=== PATIENT | female | born 1990 | race Caucasian/White ===

== ENCOUNTER 2016-08-18 07:37 | Emergency (ER) | payer OTHER ==
[2016-08-18] MEDS ORDERED: RABIES VACCINE HUMAN 2.5 INTERNATIONAL UNITS/ML VIAL (90675) As Ordered ONE (07:48)
--- NOTE | 2016-08-18 08:00 | EDDOCDS ---
Physician Documentation [facility] Name: Shaneka Ibarra Age: 25 yrs Sex: Female : 1990 Arrival Date: 08/18/2016 Time: 07:37 Bed I2 / M2 Private MD: Disposition: 08/18/16 07:53 Discharged to Home/Self Care. Impression: Contact with and (suspected) exposure to rabies. - Condition is Stable. - Discharge Instructions: VIS, Rabies - [facility]. - Medication Reconciliation, Local Pharmacy Hours form. - Follow up: Alisha Solomon [facility]; When: 4 - 5 days; Reason: Further diagnostic work-up, Recheck today's complaints, Continuance of care, RABIES VACCINE DAY 7. - Problem is an ongoing problem. - Symptoms are unchanged. Historical: - Allergies: Ceclor; - Home Meds: 1. BCP 1 tab once daily - PMHx: none; - PSHx: none; - Social history: Smoking status: Patient states was never smoker of tobacco. No barriers to communication noted, The patient speaks fluent Danish, Speaks appropriately for age. - Family history: Not pertinent. - : The pt / caregiver states he / she is not on anticoagulants. Home medication list is obtained from the patient. - Exposure Risk Screening:: None identified. 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 5 in. (165.10 cm) (R); Pain 0/10; 07:43 Body Mass Index 21.63 (58.97 kg, 165.10 cm) mlb1 MDM: 07:44 Rabies Vaccine, Human Diploid (PF) 2.5 units IM once ordered. btw Administered Medications: 07:50 Drug: Rabies Vaccine, Human Diploid (PF) 2.5 units [rabies vaccine,human diploid (PF) dy 2.5 unit intramuscular solution (2.5 units)] {Junior Staff Accountant: [employer] ([employer]). Exp: 02/28/2017. Lot #: [id number]. } Route: IM; Site: left deltoid; 07:59 Follow up: Response: No Adverse Reaction dy Signatures: Azael Mayberry, RN RN dy Tony Barajas RN RN mlb1 Deniz Rothman PA PA btw MTDD
--- NOTE | 2016-08-18 08:00 | EDDOCDS ---
Nurse's Notes [facility] Name: Shaneka Ibarra Age: 25 yrs Sex: Female : 1990 Arrival Date: 08/18/2016 Time: 07:37 Bed I2 / M2 Private MD: Diagnosis: Contact with and (suspected) exposure to rabies Presentation: 08/18 07:41 Presenting complaint: Patient states: Here for second Rabies vaccine in series 1st mlb1 administered on [place]. Adult Sepsis Screening: The patient does not have new or worsening altered mentation. Patient's respiratory rate is less than 22. Systolic blood pressure is greater than 100. Patient has a qSOFA score of 0- Negative Sepsis Screen. Suicide/Homicide risk assessment- the patient denies having any suicidal and/or homicidal ideations and does not present with any other emotional, behavioral or mental health complaints. 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 Transition of care: patient was not received from another setting of care. 07:41 Acuity: AGNIESZKA Level 4 mlb1 07:41 Method Of Arrival: Walkin/Carried/Asstd mlb1 Triage Assessment: 07:43 General: Appears in no apparent distress, comfortable, Behavior is appropriate for age, mlb1 cooperative. Pain: Denies pain. Pt Declines HIV testing. 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 BCP 1 tab once daily - PMHx: none; - PSHx: none; - Social history: Smoking status: Patient states was never smoker of tobacco. No barriers to communication noted, The patient speaks fluent Venezuelan, Speaks appropriately for age. - Family history: Not pertinent. - : The pt / caregiver states he / she is not on anticoagulants. Home medication list is obtained from the patient. - Exposure Risk Screening:: None identified. Screenin:59 Screening information is obtained from the patient. Fall risk: No risks identified. dy Assistance ADL's: requires no assistance with activities of daily living. Abuse/DV Screen: The patient / caregiver reports he/she is: not in a situation that causes fear, pain or injury. Nutritional screening: No deficits noted. Advance Directives: There is no active DNR order. home support is adequate. Assessment: 07:55 General: Appears in no apparent distress, Behavior is appropriate for age, cooperative. dy Pain: Denies pain. Neurological: No deficits noted. Respiratory: No deficits noted. Derm: Skin is pink, warm & dry. Vital Signs: 07:43 BP 113 / 72; Pulse 60; Resp 16; Temp 98.2(TE); Pulse Ox 100% on R/A; Weight 58.97 kg mlb1 (R); Height 5 ft. 5 in. (165.10 cm) (R); Pain 0/10; 07:43 Body Mass Index 21.63 (58.97 kg, 165.10 cm) mlb1 Vitals: 07:43 Log In Time: August 18, 2016 at 07:38. mlb1 ED Course: 07:38 Patient visited by Alla Hannon Reg. hs2 07:38 Patient moved to Waiting hs2 07:41 Patient visited by Tony Barajas, RN. mlb1 07:42 Triage Initiated mlb1 07:44 Patient visited by Tony Barajas, RN. mlb1 07:44 Deniz Rothman PA is PHCP. btw 07:44 Fran Sykes MD is Attending Physician. btw 07:44 Patient moved to I2 / M2 mlb1 07:46 Patient visited by Deniz Rothman PA. btw 07:52 Alisha Solomon [facility] is Referral Physician. btw 07:55 The patient / caregiver is instructed regarding the plan of care and ED course. Patient dy has correct armband on for positive identification. 07:58 No IV's were initiated during this patient's visit. No procedures done that require dy assistance. Administered Medications: 07:50 Drug: Rabies Vaccine, Human Diploid (PF) 2.5 units [rabies vaccine,human diploid (PF) dy 2.5 unit intramuscular solution (2.5 units)] {Railway Track Worker: [employer] ([employer]). Exp: 02/28/2017. Lot #: [id number]. } Route: IM; Site: left deltoid; 07:59 Follow up: Response: No Adverse Reaction dy Order Results: There are currently no results for this order. Outcome: 07:53 Discharge ordered by Provider. btw 07:58 Discharge Assessment: patient administered narcotics - no. The following High Risk dy Discharge criteria are identified: None. Discharged to home ambulatory. Condition: stable. Discharge instructions given to patient, Instructed on discharge instructions, follow up and referral plans. medication usage, Demonstrated understanding of instructions, Pt was receptive of discharge instructions/ teaching. No special radiology studies were completed. Property sent home with patient. 07:59 Patient left the ED. kellie Signatures: Azael Mayberry RN Tony De Dios RN RN mlb1 Deniz Rothman PA PA btw Alla Hannon, Reg Reg hs2 MTDD
--- NOTE | 2016-08-20 09:01 | EDDOCDS ---
Physician Documentation [facility] Name: Shaneka Darby Age: 25 yrs Sex: Female : 1990 Arrival Date: 08/18/2016 Time: 07:37 Bed I2 / M2 Private MD: Disposition: 08/18/16 07:53 Discharged to Home/Self Care. Impression: Contact with and (suspected) exposure to rabies. - Condition is Stable. - Discharge Instructions: VIS, Rabies - [facility] [place]. - Medication Reconciliation, Local Pharmacy Hours form. - Follow up: Alisha Solomon [facility]; When: 4 - 5 days; Reason: Further diagnostic work-up, Recheck today's complaints, Continuance of care, RABIES VACCINE DAY 7. - Problem is an ongoing problem. - Symptoms are unchanged. Historical: - Allergies: Ceclor; - Home Meds: 1. BCP 1 tab once daily - PMHx: none; - PSHx: none; - Social history: Smoking status: Patient states was never smoker of tobacco. No barriers to communication noted, The patient speaks fluent Macedonian, Speaks appropriately for age. - Family history: Not pertinent. - : The pt / caregiver states he / she is not on anticoagulants. Home medication list is obtained from the patient. - Exposure Risk Screening:: None identified. 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 5 in. (165.10 cm) (R); Pain 0/10; 07:43 Body Mass Index 21.63 (58.97 kg, 165.10 cm) mlb1 MDM: 07:44 Rabies Vaccine, Human Diploid (PF) 2.5 units IM once ordered. btw 08:06 Financial registration complete. mm15 08:06 [facility] Payment Agreement was scanned into [employer] and attached to record. mm15 08/19 09:26 T-Sheet-- Draft Copy was scanned into [employer] and attached to record. gb Administered Medications: 08/18 07:50 Drug: Rabies Vaccine, Human Diploid (PF) 2.5 units [rabies vaccine,human diploid (PF) dy 2.5 unit intramuscular solution (2.5 units)] {Clinical Technician: Sanofi Pasteur ([employer]). Exp: 02/28/2017. Lot #: [id number]. } Route: IM; Site: left deltoid; 07:59 Follow up: Response: No Adverse Reaction dy Signatures: Yana Kaminski, Reg Reg gb Azael Mayberry RN RN dy Tony Barajas RN RN mlb1 Deniz Rothman PA PA btw McGrath, Marlynn mm15 The chart was reviewed and I authenticate all verbal orders and agree with the evaluation and treatment provided.Attachments: 08:06 [facility] Payment Agreement mm15 08/19 09:26 T-Sheet-- Draft Copy gb Chart Complete MTDD
--- NOTE | 2016-08-20 09:01 | EDDOCDS ---
Physician Documentation [facility] Name: Shaneka Darby Age: 25 yrs Sex: Female : 1990 Arrival Date: 08/18/2016 Time: 07:37 Bed I2 / M2 Private MD: Disposition: 08/18/16 07:53 Discharged to Home/Self Care. Impression: Contact with and (suspected) exposure to rabies. - Condition is Stable. - Discharge Instructions: VIS, Rabies - [facility]. - Medication Reconciliation, Local Pharmacy Hours form. - Follow up: Alisha Solomon [facility]; When: 4 - 5 days; Reason: Further diagnostic work-up, Recheck today's complaints, Continuance of care, RABIES VACCINE DAY 7. - Problem is an ongoing problem. - Symptoms are unchanged. Historical: - Allergies: Ceclor; - Home Meds: 1. BCP 1 tab once daily - PMHx: none; - PSHx: none; - Social history: Smoking status: Patient states was never smoker of tobacco. No barriers to communication noted, The patient speaks fluent Nicaraguan, Speaks appropriately for age. - Family history: Not pertinent. - : The pt / caregiver states he / she is not on anticoagulants. Home medication list is obtained from the patient. - Exposure Risk Screening:: None identified. 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 5 in. (165.10 cm) (R); Pain 0/10; 07:43 Body Mass Index 21.63 (58.97 kg, 165.10 cm) mlb1 MDM: 07:44 Rabies Vaccine, Human Diploid (PF) 2.5 units IM once ordered. btw 08:06 Financial registration complete. mm15 08:06 [facility] Payment Agreement was scanned into [employer] and attached to record. mm15 08/19 09:26 T-Sheet-- Draft Copy was scanned into [employer] and attached to record. gb Administered Medications: 08/18 07:50 Drug: Rabies Vaccine, Human Diploid (PF) 2.5 units [rabies vaccine,human diploid (PF) dy 2.5 unit intramuscular solution (2.5 units)] {Unleavened Dough Mixer: Sanofi Pasteur ([employer]). Exp: 02/28/2017. Lot #: [id number]. } Route: IM; Site: left deltoid; 07:59 Follow up: Response: No Adverse Reaction dy Signatures: Yana Kaminski, Reg Reg gb Azael Mayberry RN RN dy Tony Barajas RN RN mlb1 Deniz Rothman PA PA btw McGrath, Marlynn mm15 The chart was reviewed and I authenticate all verbal orders and agree with the evaluation and treatment provided.Attachments: 08:06 [facility] Payment Agreement mm15 08/19 09:26 T-Sheet-- Draft Copy gb Chart Complete MTDD
--- NOTE | 2016-08-20 09:01 | EDDOCDS ---
Nurse's Notes [facility] Name: Shaneka Darby Age: 25 yrs Sex: Female : 1990 Arrival Date: 08/18/2016 Time: 07:37 Bed I2 / M2 Private MD: Diagnosis: Contact with and (suspected) exposure to rabies Presentation: 08/18 07:41 Presenting complaint: Patient states: Here for second Rabies vaccine in series 1st mlb1 administered on [place]. Adult Sepsis Screening: The patient does not have new or worsening altered mentation. Patient's respiratory rate is less than 22. Systolic blood pressure is greater than 100. Patient has a qSOFA score of 0- Negative Sepsis Screen. Suicide/Homicide risk assessment- the patient denies having any suicidal and/or homicidal ideations and does not present with any other emotional, behavioral or mental health complaints. 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 Transition of care: patient was not received from another setting of care. 07:41 Acuity: AGNIESZKA Level 4 mlb1 07:41 Method Of Arrival: Walkin/Carried/Asstd mlb1 Triage Assessment: 07:43 General: Appears in no apparent distress, comfortable, Behavior is appropriate for age, mlb1 cooperative. Pain: Denies pain. Pt Declines HIV testing. 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 BCP 1 tab once daily - PMHx: none; - PSHx: none; - Social history: Smoking status: Patient states was never smoker of tobacco. No barriers to communication noted, The patient speaks fluent [place] Guinean, Speaks appropriately for age. - Family history: Not pertinent. - : The pt / caregiver states he / she is not on anticoagulants. Home medication list is obtained from the patient. - Exposure Risk Screening:: None identified. Screenin:59 Screening information is obtained from the patient. Fall risk: No risks identified. dy Assistance ADL's: requires no assistance with activities of daily living. Abuse/DV Screen: The patient / caregiver reports he/she is: not in a situation that causes fear, pain or injury. Nutritional screening: No deficits noted. Advance Directives: There is no active DNR order. home support is adequate. Assessment: 07:55 General: Appears in no apparent distress, Behavior is appropriate for age, cooperative. dy Pain: Denies pain. Neurological: No deficits noted. Respiratory: No deficits noted. Derm: Skin is pink, warm & dry. Vital Signs: 07:43 BP 113 / 72; Pulse 60; Resp 16; Temp 98.2(TE); Pulse Ox 100% on R/A; Weight 58.97 kg mlb1 (R); Height 5 ft. 5 in. (165.10 cm) (R); Pain 0/10; 07:43 Body Mass Index 21.63 (58.97 kg, 165.10 cm) mlb1 Vitals: 07:43 Log In Time: August 18, 2016 at 07:38. mlb1 ED Course: 07:38 Patient visited by Alla Hannon Reg. hs2 07:38 Patient moved to Waiting hs2 07:41 Patient visited by Tony Barajas, RN. mlb1 07:42 Triage Initiated mlb1 07:44 Patient visited by Tony Barajas, RN. mlb1 07:44 Deniz Rothman PA is PHCP. btw 07:44 Fran Sykes MD is Attending Physician. btw 07:44 Patient moved to I2 / M2 mlb1 07:46 Patient visited by Deniz Rothman PA. btw 07:52 Alisha Solomon [facility] is Referral Physician. btw 07:55 The patient / caregiver is instructed regarding the plan of care and ED course. Patient dy has correct armband on for positive identification. 07:58 No IV's were initiated during this patient's visit. No procedures done that require dy assistance. 08:06 [facility] Payment Agreement was scanned into [employer] and attached to record. mm15 08/19 09:26 T-Sheet-- Draft Copy was scanned into [employer] and attached to record. gb 15:23 Patient name changed from Shaneka\S\Valerie\S\Bonahannon\S\ to Shaneka\S\Valerie\S\Bonhannon. EDMS Administered Medications: 08/18 07:50 Drug: Rabies Vaccine, Human Diploid (PF) 2.5 units [rabies vaccine,human diploid (PF) dy 2.5 unit intramuscular solution (2.5 units)] {Assistant Professor Of Communication: Sanofi Pasteur ([employer]). Exp: 02/28/2017. Lot #: [id number]. } Route: IM; Site: left deltoid; 07:59 Follow up: Response: No Adverse Reaction dy Order Results: There are currently no results for this order. Outcome: 07:53 Discharge ordered by Provider. btw 07:58 Discharge Assessment: patient administered narcotics - no. The following High Risk dy Discharge criteria are identified: None. Discharged to home ambulatory. Condition: stable. Discharge instructions given to patient, Instructed on discharge instructions, follow up and referral plans. medication usage, Demonstrated understanding of instructions, Pt was receptive of discharge instructions/ teaching. No special radiology studies were completed. Property sent home with patient. 07:59 Patient left the ED. dy Signatures: Dispatcher [employer] EDMS Yana Kaminski, Reg Reg gb Azael Mayberry RN RN Tony Diaz RN RN mlb1 Deniz Rothman PA PA btw Matthew Medina mm15 Alla Hannon, Reg Reg hs2 Chart Complete [facility]
== END 2016-08-18 07:59 | disposition home or self-care (01) ==
LOC: M ED 07:37
DX: Z20.3 Contact with and (suspected) exposure to rabies (principal); Z23 Encounter for immunization; Z88.1 Allergy status to other antibiotic agents